=== PATIENT | female | born 1990 | race Caucasian/White ===

== ENCOUNTER 2020-12-22 13:51 | Emergency (ER) | payer OTHER ==
[~2020-12-22] VITALS: Ht 167.6 cm; Wt 54.4 kg
[2020-12-22 14:26] LABS: URINE BILIRUBIN NEGATIVE (Negative); URINE BLOOD NEGATIVE (Negative); URINE CLARITY CLEAR; URINE COLOR YELLOW; URINE GLUCOSE-RANDOM NEGATIVE (Negative); URINE LEUKOCYTES-REFLEX NEGATIVE (Negative); URINE NITRITE-REFLEX NEGATIVE (Negative); URINE PROTEIN 2+ (Negative); URINE SPECIFIC GRAVITY >= 1.030 (1.005-1.030); URINE UROBILINOGEN 0.2 E.U./dl (0.2-1.0)
[2020-12-22 14:35] LABS: URINE KETONES 3+ (Negative)
[2020-12-22 14:36] LABS: ACETEST (KETONE CONFIRMATORY) Large (Negative)
--- NOTE | 2020-12-22 14:37 | EKG ---
[place] [address] ELECTROCARDIOGRAM REPORT Name: BANKERWINVivek GUTIERREZ Room: [facility]#: [id number] Admission: 12/22/20 Attend Phys: Discharge: Date of : 89 Date of Service: 12/22/20 1432 Report #: [id number] THIS REPORT FOR: //name// [facility] ED Test Date: 2020-12-22 Test Time: 14:32:17 Pat Name: KERWIN CEVALLOS Department: Room: Gender: Vine[place] Tender: : 1990 Requested By: Majo Lyons Order Number: [id number] MD: Jesus Najera Measurements Intervals [place] Rate: 59 P: [place]: QRS: 70 QRSD: 87 T: 47 QT: 441 QTc: 437 Interpretive Statements Sinus rhythm Baseline wander in lead(s) V5,V6 No previous ECG available for comparison Electronically Signed On 12-22-2020 14:37:00 CUSTODIAN MANAGER by Jesus Najera [email or web address] <ELECTRONICALLY SIGNED> By: Jesus Najera MD, [facility] 12/22/20 143 1432 1432 Jesus Najera MD, FACC /EPI
[2020-12-22 14:38] LABS: BACTERIA-REFLEX 1-9 Few /HPF (None Seen); CASTS None Seen /LPF (None Seen); CRYSTALS None Seen /LPF (None Seen); MUCUS >6 Heavy strn/LPF (None Seen); SQUAMOUS >10 Many /LPF (0-3); URINE RBC 0-2 Rare /HPF (0-2); URINE WBC-REFLEX 0-5 Rare /HPF (0-5)
[2020-12-22 14:42] LABS: HEMATOCRIT 44.6 % (37.0-47.0); HEMOGLOBIN 15.2 gm/dL (12.0-15.0); MCH 30.7 pg (26.0-34.0); MCV 90.1 fL (80.0-100.0); MPV 7.6 fl. (7.2-11.1); NUCLEATED RBCS 0 /100WBC; PLATELET COUNT* 296 thou/uL (150-400); RBC 4.94 mil/uL (4.20-5.00); RDW-CV 13.3 % (10.5-14.5); WBC 5.1 thou/uL (4.0-11.0)
[2020-12-22 14:46] LABS: CALCIUM 8.8 mg/dL (8.5-10.1); CREATININE 0.7 mg/dL (0.6-1.3); POTASSIUM 3.8 mmol/L (3.5-5.1)
[2020-12-22 14:50] LABS: ALBUMIN 4.3 g/dL (3.4-5.0); TOTAL BILIRUBIN 0.5 mg/dL (<0.1-1.0); TOTAL PROTEIN 8.7 g/dL (6.4-8.2)
[2020-12-22 15:02] LABS: AMP/METHAMP Negative (Negative); BARBITURATES Negative (Negative); BENZODIAZEPINES Negative (Negative); COCAINE Negative (Negative); METHADONE Negative (Negative); OPIATES Negative (Negative); PCP Negative (Negative); THC POSITIVE (Negative)
[2020-12-22 15:27] LABS: ABSOLUTE LYMPHOCYTES 0.5 thou/uL (0.8-5.3); ABSOLUTE MONOCYTES 0.2 thou/uL (0.0-1.2); ABSOLUTE NEUTROPHILS 4.4 thou/uL (1.6-8.1); PLATELET ESTIMATE ADEQUATE
[2020-12-22 15:28] LABS: LARGE PLATELETS FEW
[2020-12-22] MEDS ORDERED: DICYCLOMINE HCL20 MG PO (17:06)
[2020-12-22] MEDS ORDERED: PHENERGAN 25 MG25 M1 PO (17:06)
[2020-12-22] MEDS ORDERED: PREDNISONE 10 M10 MG PO (17:06)
[2020-12-22 17:40] VITALS: BP 124/80
== END 2020-12-22 17:40 | disposition home or self-care (01) ==
LOC: M.ERS 13:51
PROVIDERS: Nurse Practitioner Family
DX: U07.1 COVID-19 (principal); K09.0 Developmental odontogenic cysts; R11.2 Nausea with vomiting, unspecified; F17.210 Nicotine dependence, cigarettes, uncomplicated